=== PATIENT | male | born 1965 | race Caucasian/White ===

== ENCOUNTER 2016-09-28 18:00 | Emergency (ER) | payer SELFPAY ==
[~2016-09-28] VITALS: Ht 167.6 cm; Wt 79.5 kg
[~2016-09-28 18:00] MED LIST: AXIRON30 MG/1.5 TP; EPA1000 MG PO; GLUCOPHAGE500 MG/TAB PO; GLUCOPHAGE850 MG/TAB PO; HCTZ 25MG TAB25 MG PO; PRAVACHOL 40MG40 MG PO; ZESTRIL 20MG TA20 MG PO
[2016-09-28 18:04] VITALS: BP 109/78; TEMP 98.3
[2016-09-28] MEDS ORDERED: PRILOSEC 20MG20 MG PO (18:47)
[2016-09-28] MEDS ORDERED: ASPIRIN 81M81 MG/TA2 PO (19:02)
[2016-09-28] MEDS ORDERED: NORCO 325 MG-7.1 TAB PO (19:33)
[2016-09-28] MEDS ORDERED: AMOXICILLIN 8751 TAB PO (19:33)
[2016-09-28 19:48] VITALS: PULSE 80
== END 2016-09-28 20:02 | disposition home or self-care (01) ==
LOC: COL.ER 18:00
DX: S61.451A Open bite of right hand, initial encounter (principal); S60.511A Abrasion of right hand, initial encounter; W54.0XXA Bitten by dog, initial encounter; Y92.830 Public park as the place of occurrence of the external cause; Z23 Encounter for immunization; I10 Essential (primary) hypertension; F17.210 Nicotine dependence, cigarettes, uncomplicated; E11.9 Type 2 diabetes mellitus without complications; Z79.84 Long term (current) use of oral hypoglycemic drugs

== ENCOUNTER → 2018-02-14 | Outpatient (CLI) | payer SELFPAY ==
[~2018-02-14] MED LIST changes: +AMOXICILLIN 8751 TAB PO; +ASPIRIN 81M81 MG/TA2 PO; +NORCO 325 MG-7.1 TAB PO; +PRILOSEC 20MG20 MG PO
== END ==
LOC: COL.RAD 12:02
DX: N43.3 Hydrocele, unspecified (principal); I86.1 Scrotal varices

== ENCOUNTER → 2024-02-15 | Outpatient (CLI) | payer BC ==
[~2024-02-15] MED LIST changes: +Iohexol 300 - 100 ML VIAL IV ONE; +NS 100 ML IV SCH
== END ==
LOC: COL.RAD 07:29
DX: K57.30 Diverticulosis of large intestine without perforation or abscess without bleeding (principal); D50.8 Other iron deficiency anemias; Z93.3 Colostomy status
CPT/HCPCS: Q9967